=== PATIENT | female | born 1955 | race American Indian/Alaskan Native ===

== ENCOUNTER → 2016-08-12 | Day surgery (SDC) | payer OTHER ==
--- NOTE | 2016-08-13 09:51 | PATH ---
Surgical Pathology Report Patient Name: FLAKITO MELÉNDEZ [facility]. Rec. #: [id number] /Age/Gender: 1955 (Age: 60) / F Account: [id number] Location: [facility] Taken: 08/12/2016 Received: 08/12/2016 Reported: 08/13/2016 Physicians: Trenton Becerra M.D. Specimen(s) Received A: LEFT BREAST SPECIMEN WITH CALCIFICATIONS B: LEFT BREAST SPECIMEN WITHOUT CALCIFICATIONS Clinical History Nonpalpable lesion, microcalcification, suspicious Final Diagnosis A. LEFT BREAST, WITH CALCIFICATION, STEREOTACTIC NEEDLE CORE BIOPSY: SCLEROSED FIBROADENOMA WITH STROMAL CALCIFICATION. B. LEFT BREAST, WITHOUT CALCIFICATION, STEREOTACTIC NEEDLE CORE BIOPSY: SCLEROSED FIBROADENOMA AND BENIGN BREAST TISSUE. Electronically Signed Tod Grayosn M.D. Gross Description A. Received in formalin labeled "left breast with calcifications," are 2 pretty-yellow, cylindrical portions of fibroadipose tissue averaging 2.8 cm in length and 0.2 cm in diameter. The specimens are submitted in toto in one cassette. B. Received in formalin labeled "left breast without calcifications," are 4 pretty-yellow, cylindrical portions of fibroadipose tissue ranging from 2.0-2.8 cm in length and averaging 0.3 cm in diameter. The specimens are submitted in toto in one cassette. Time to formalin fixation: 5 minutes Total formalin fixation time: Approximately 8 hours. /08/12/201608/12/2016
== END | disposition home or self-care (01) ==
LOC: FMAMMOTONE 08:06
PROVIDERS: ATTEND Surgery Surgical Oncology
PROC: 0HBU3ZX Excision of Left Breast, Percutaneous Approach, Diagnostic (ICD-10-PCS; principal; 2016-08-12)
DX: D24.2 Benign neoplasm of left breast (principal); R92.1 Mammographic calcification found on diagnostic imaging of breast; N64.89 Other specified disorders of breast
CPT/HCPCS: 19081; 88305-TC

== ENCOUNTER 2017-04-22 05:14 | Day surgery (SDC) | payer OTHER ==
[2017-04-21 13:26] VITALS: BMI 37.4
--- NOTE | 2017-04-22 07:39 | HP ---
Satellite [facility] - Past Medical History Allergies/Adverse Reactions: Allergies Allergy/AdvReac Type Severity Reaction Status Date / Time oxycodone HCl [From Percocet] Allergy Intermediate Itching Verified 04/22/17 07: 14 Endocrine: Yes: Diabetes Mellitus Additional Medical History: Patient also has a history of breast cancer on the right side. Pt also has a history of hypertension.Also a total knee arthroplasty. - Current Medications Current Medications: Home Medications Medication Instructions Recorded Aspirin Coated [Ecotrin -] 81 mg PO DAILY 06/08/12 Telmisartan [Micardis] 80 mg PO HS 06/08/12 Ranitidine HCl [Zantac 75] 150 mg PO BID 01/17/13 Tamoxifen Citrate 20 mg PO HS 01/17/13 Metoprolol Succinate [Toprol Xl] 100 mg PO DAILY 12/05/14 Satellite Physical Exam - Physical Examination Vital Signs: Vital Signs Period Temp Pulse Resp BP Sys/Davis Pulse Ox Last 24 Hr 98.2 F 60 18 140/67 97
[2017-04-22] MEDS ORDERED: PROMETHAZINE HCL 25 MG/1 ML VIAL IVPUSH PRN (08:15)
[2017-04-22] MEDS ORDERED: ONDANSETRON 4 MG/2 ML VIAL IVPUSH PRN (08:15)
[2017-04-22] MEDS ORDERED: LACTATED RINGERS SOLUTION 1,000 ML IV SCH (08:15)
[2017-04-22] MEDS ORDERED: FERRIC SUBSULFATE 500 ML BOTTLE TP ONE (08:15)
[2017-04-22] MEDS ORDERED: ceFAZolin SODIUM 1 GM VIAL IVPB ONE (08:27)
--- NOTE | 2017-04-22 09:17 | OP ---
DATE OF OPERATION: 04/22/2017 PREOPERATIVE DIAGNOSIS: Postmenopausal bleeding and also abnormal Pap smear characterized by atypical glandular cells of undetermined significance of the cervix. OPERATIVE PROCEDURE: Hysterectomy, dilatation and curettage, colposcopy with endocervical curettage and cervical biopsies. SURGEON: Marcelino Merino MD ESTIMATED BLOOD LOSS: Approximately 10 mL. DESCRIPTION OF PROCEDURE: The patient was brought to the operating room, placed in the supine position, given anesthesia by the mine superintendent. The patient was then prepped and draped in the usual manner for hysteroscopy D and C in the lithotomy position. The cervix was treated with acetic acid. Colposcopy was performed. The patient was noted to have tissue protruding from the endocervical canal to the exocervix. The cervix appeared normal, and the tissue was removed. After the colposcopy was carried out and the tissue was removed from the endocervical canal, a hysteroscopy was then performed which showed polypoid tissue inside the uterus. The polypoid tissue was removed using a medium-sized curette. The patient was sounded to 8 cm prior to the removal of the tissue. The patient tolerated the procedure well. Hemostasis was achieved by using Monsels solution, and afterwards, cautery using a 5-mm ball electrode to achieve cervical hemostasis after taking the cervical biopsies from areas 3, 7, 6, and 12. The patient left the operating room in good condition and went to the recovery room for observation and recovery. The patient did well and was later discharged. MARCELINO MERINO M.D. [id number]
[2017-04-22 09:54] VITALS: PULSE 60
[2017-04-22 10:17] VITALS: TEMP 98.8
[2017-04-22 11:06] VITALS: BP 140/80
--- NOTE | 2017-04-25 15:10 | PATH ---
Surgical Pathology Report Patient Name: FLAKITO MELÉNDEZ [facility]. Rec. #: [id number] /Age/Gender: 1955 (Age: 61) / F Account: [id number] Location: [facility] SURGICAL Taken: 04/22/2017 Received: 04/22/2017 Reported: 04/25/2017 Physicians: Garth Merino M.D. Specimen(s) Received A: ENDOCERVICAL POLYP B: ENDOCERVICAL CURETTINGS C: CERVICAL BIOPSY AT 7 O'CLOCK D: CERVICAL BIOPSY AT 3 O'CLOCK E: CERVICAL BIOPSPY AT 6 O'CLOCK F: CERVICAL BIOPSY AT 12 'CLOCK G: ENDOMETRIAL CURETTINGS Clinical History Abnormal Pap smear Final Diagnosis A. UTERUS, ENDOCERVICAL POLYP, BIOPSY: ENDOMETRIAL POLYP(S), ATROPHIC. B. ENDOCERVICAL CURETTINGS, DILATATION AND CURETTAGE: FRAGMENTS OF ENDOMETRIAL POLYP(S), ATROPHIC. C. CERVIX, 7:00, BIOPSY: BENIGN CERVICAL TISSUE. NEGATIVE FOR INTRAEPITHELIAL LESIONORMALIGNANCY. D. CERVIX, 3:00, BIOPSY: BENIGN CERVICAL TISSUE. NEGATIVE FOR INTRAEPITHELIAL LESIONORMALIGNANCY. E. CERVIX, 6:00, BIOPSY: BENIGN CERVICAL TISSUE. NEGATIVE FOR INTRAEPITHELIAL LESIONORMALIGNANCY. F. CERVIX, 12:00, BIOPSY: BENIGN CERVICAL TISSUE. NEGATIVE FOR INTRAEPITHELIAL LESIONORMALIGNANCY. G. ENDOMETRIAL CURETTINGS, DILATATION AND CURETTAGE: FRAGMENTS OF ENDOMETRIAL POLYP(S), ATROPHIC. Electronically Signed Kelsey Pantoja M.D. Gross Description A. Received in formalin labeled "endocervical polyp," is a 0.9 x 0.9 x 0.3 cm pink-pretty, polypoid portion of soft tissue. The specimen is submitted in toto in one cassette. B. Received in formalin labeled "endocervical curettings," is a 1.3 x 1.0 x 0.3 cm aggregate of pink-pretty, irregular to polypoid soft tissue fragments. The specimen is entirely submitted in one cassette. C. Received in formalin labeled "cervical biopsy at 7:00," is a 0.5 x 0.3 x 0.1 cm pretty-pink soft tissue fragment. The specimen is submitted in toto in one cassette. D. Received in formalin labeled "cervical biopsy at 3:00," is a 0.4 x 0.3 x 0.2 cm pink-pretty soft tissue fragment. The specimen is submitted in toto in one cassette. E. Received in formalin labeled "cervical biopsy at 6:00," is a 0.5 x 0.3 x 0.2 cm pink-pretty soft tissue fragment. The specimen is submitted in toto in one cassette. F. Received in formalin labeled "cervical biopsy at 12:00," is a 0.5 x 0.3 x 0.1 cm pink-pretty soft tissue fragment. The specimen is submitted in toto in one cassette. G. Received in formalin labeled "endometrial curettings," is a 3.2 x 3.0 x 0.4 cm aggregate of pink-pretty irregular to polypoid soft tissue fragments. The specimen is entirely submitted in 2 cassettes. 04/22/201704/22/2017
== END 2017-04-22 11:06 | disposition home or self-care (01) ==
LOC: JASU-SURG 05:14
PROVIDERS: ATTEND Obstetrics & Gynecology
PROC: 0UB98ZX Excision of Uterus, Via Natural or Artificial Opening Endoscopic, Diagnostic (ICD-10-PCS; 2017-04-22)
PROC: 0UDB7ZX Extraction of Endometrium, Via Natural or Artificial Opening, Diagnostic (ICD-10-PCS; 2017-04-22)
PROC: 0UBC8ZX Excision of Cervix, Via Natural or Artificial Opening Endoscopic, Diagnostic (ICD-10-PCS; principal; 2017-04-22 07:30)
DX: N95.0 Postmenopausal bleeding (principal); N84.0 Polyp of corpus uteri; R87.619 Unspecified abnormal cytological findings in specimens from cervix uteri
CPT/HCPCS: 86850; 86900; 86901; 88305-TC; 94760

== ENCOUNTER 2017-09-15 06:09 | Day surgery (SDC) | payer OTHER ==
[2017-09-09 12:50] VITALS: BMI 36.2
[2017-09-15] MEDS ORDERED: CELECOXIB 200 MG CAPSULE PO ONE (06:48)
[2017-09-15] MEDS ORDERED: oxyCODONE HCL 10 MG SUSTAINED ACTING TABLET PO ONE (06:48)
[2017-09-15] MEDS ORDERED: GABAPENTIN 300 MG CAPSULE (FP) PO ONE (06:48)
[2017-09-15] MEDS ORDERED: TRANEXAMIC ACID 1000 MG/10 ML VIAL IVPUSH ONE (06:48)
[2017-09-15] MEDS ORDERED: CEFAZOLIN 2 GM in DEXTROSE 5%-WATER - 50 ML IVPB ONE (06:48)
[2017-09-15] MEDS ORDERED: ROPIVICAINE 0.2%/MORPH PF/KETOROLAC - 51ML DISP.SYRINGE IA ONE ×3 (06:48→11:15)
[2017-09-15] MEDS ORDERED: PANTOPRAZOLE 40 MG TABLET (FP) PO ONE (06:50)
--- NOTE | 2017-09-15 07:04 | HP ---
Admitting History and Physical - Admission Chief Complaint: left knee osteoarthritis x years History of Present Illness: 61-year-old female presenting regard to her left knee. Long-standing history of left knee osteoarthritis. Patient complains of pain, limited range of motion, difficulty ambulating, and difficulty completing activities of daily living. Patient has failed conservative treatment options including PO medications, activity modification, injections, and exercise program. At this point Patient would like to proceed with surgical intervention, Left total knee arthroplasty ( MAKOplasty). History Source: Patient - Past Medical History Cardiovascular: Yes: HTN Gastrointestinal: Yes: GERD Musculoskeletal: Yes: Osteoarthritis Endocrine: Yes: Diabetes Mellitus Additional Past Medical History: Breast CA - Past Surgical History Additional Past Surgical History: See written history & physical - Smoking History Smoking history: Never smoked Have you smoked in the past 12 months: No - Alcohol/Substance Use Hx Alcohol Use: No Home Medications - Allergies Allergies/Adverse Reactions: Allergies Allergy/AdvReac Type Severity Reaction Status Date / Time oxycodone HCl [From Percocet] AdvReac Intermediate Itching Verified 09/09/17 12: 39 - Home Medications Home Medications: Ambulatory Orders Aspirin Coated [Ecotrin -] 81 mg PO DAILY 06/08/12 Telmisartan [Micardis] 80 mg PO HS 06/08/12 Ranitidine HCl [Zantac 75] 150 mg PO BID 01/17/13 Tamoxifen Citrate 20 mg PO HS 01/17/13 Metoprolol Succinate [Toprol Xl] 100 mg PO DAILY 12/05/14 Cholecalciferol (Vitamin D3) [Vitamin D] 2,000 unit PO DAILY 09/09/17 Ibuprofen [Motrin -] 400 mg PO ASDIR PRN 09/15/17 Physical Examination Vital Signs: Vital Signs Temperature 98.2 F 09/15/17 06:28 Pulse Rate 62 09/15/17 06:28 Respiratory Rate 18 09/15/17 06:28 Blood Pressure 149/77 09/15/17 06:28 O2 Sat by Pulse Oximetry (%) 98 09/15/17 06:28 Constitutional: Yes: Well Nourished, No Distress Eyes: Yes: Conjunctiva Clear HENT: Yes: Atraumatic, Normocephalic Neck: Yes: Supple Cardiovascular: Yes: Regular Rate and Rhythm Respiratory: Yes: Regular Gastrointestinal: Yes: Soft ...Rectal Exam: Yes: Deferred Musculoskeletal: Yes: Joint Stiffness (left knee), Joint Swelling (left knee) Assessment/Plan 61-year-old female presenting regard to her left knee. Long-standing history of left knee osteoarthritis. Patient complains of pain, limited range of motion, difficulty ambulating, and difficulty completing activities of daily living. Patient has failed conservative treatment options including PO medications, activity modification, injections, and exercise program. At this point Patient would like to proceed with surgical intervention. Pros, cons, risks, benefits & alternatives of a Left total knee arthroplasty (MAKOplasty) were discussed at length. Patient confirms their understanding and consents to proceed wih a left total knew arthroplasty (MAKOplasty).
[2017-09-15] MEDS ORDERED: BUPIVACAINE HCL/PF (5 MG/ML) 30 ML VIAL IJ ONE (07:20)
[2017-09-15] MEDS ORDERED: DEXAMETHASONE SOD PHOSPHATE/PF 10 MG/ML SDV ONE (07:20)
[2017-09-15] MEDS ORDERED: MIDAZOLAM HCL 2 MG/2 ML SINGLE DOSE VIAL ONE ×2 (07:20→08:24)
[2017-09-15] MEDS ORDERED: ceFAZolin SODIUM 1 GM VIAL ONE ×2 (07:23→08:25)
[2017-09-15] MEDS ORDERED: VANCOMYCIN 1,000 MG VIAL (RESTRICTED TO ID ONLY) ONE (07:23)
[2017-09-15] MEDS ORDERED: SUCCINYLCHOLINE CHLORIDE 200 MG/10 ML VIAL ONE (08:24)
[2017-09-15] MEDS ORDERED: PROPOFOL 20 ML ONE ×5 (08:24→10:50)
[2017-09-15] MEDS ORDERED: LIDOCAINE HCL/PF 2% SDV 5ML VIAL ONE ×2 (08:25→08:39)
[2017-09-15] MEDS ORDERED: ONDANSETRON 4 MG/2 ML VIAL ONE (08:25)
[2017-09-15] MEDS ORDERED: DEXAMETHASONE SOD PHOSPHATE 4 MG/1 ML VIAL ONE (08:25)
[2017-09-15] MEDS ORDERED: TRANEXAMIC ACID 1000 MG/10 ML VIAL IVPB ONE ×2 (09:04→11:15)
[2017-09-15] MEDS ORDERED: VANCOMYCIN 1,000 MG VIAL (RESTRICTED TO ID ONLY) IVPB ONE ×2 (09:05→11:16)
[2017-09-15] MEDS ORDERED: oxyCODONE HCL 10 MG SUSTAINED ACTING TABLET PO SCH (10:00)
[2017-09-15] MEDS ORDERED: ONDANSETRON 4 MG/2 ML VIAL IVPUSH PRN ×2 (12:18→12:36)
[2017-09-15] MEDS ORDERED: PROMETHAZINE HCL 25 MG/1 ML VIAL IVPUSH PRN (12:18)
[2017-09-15] MEDS ORDERED: oxyCODONE HCL 5 MG TABLET PO PRN ×2 (12:18)
[2017-09-15] MEDS ORDERED: ACETAMINOPHEN 325 MG TABLET (FP) PO SCH (12:30)
[2017-09-15] MEDS ORDERED: MAG HYDROX/AL HYDROX/SIMETH 30 ML UNIT-DOSE CUP PO PRN (12:36)
[2017-09-15] MEDS ORDERED: traMADol HCL 50 MG TABLET PO SCH (12:45)
[2017-09-15] MEDS ORDERED: LACTATED RINGERS SOLUTION 1,000 ML IV SCH (12:45)
[2017-09-15] MEDS ORDERED: ELECTROLYTE-148 SOLN 1,000 ML IV SCH (12:46)
[2017-09-15] MEDS: KETOROLAC TROMETHAMINE 30 MG/1 ML VIAL IVPUSH SCH ×3 (12:46→18:47)
[2017-09-15] MEDS: ACETAMINOPHEN 1000 MG/100 ML VIAL (NON FORMULARY) IVPB ONE ×2 (12:47→13:25)
--- NOTE | 2017-09-15 12:50 | OP ---
Operative Note - Note: Operative Date: 09/15/17 Pre-Operative Diagnosis: Left knee OA Operation: Left medial KEENA UKA Post-Operative Diagnosis: Same as Pre-op Surgeon: Daryl Ramos Core Driller Helper: Brayan Meneses Anesthesia: Spinal Estimated Blood Loss (mls): 100 Operative Report Dictated: Yes
--- NOTE | 2017-09-15 13:18 | SURG ---
Surgery Access Rep Note Access Rep: Brayan Meneses PA-C Date of Service: 09/15/17 Diagnosis: Left knee osteoarthritis Procedure: Left knee partial knee replacement I was present for the entirety of the operative procedure. For further detail, please refer to operative report.
--- NOTE | 2017-09-15 14:42 | SPEC ---
DATE OF OPERATION: DATE OF DICTATION: 09/15/2017 PREOPERATIVE DIAGNOSIS: Left knee osteoarthritis. POSTOPERATIVE DIAGNOSIS: Left knee osteoarthritis. PROCEDURE: Left knee medial unicompartmental knee replacement with MAKOplasty robotic navigation. ATTENDING: Damaris Elias MD PIPING SUPERVISOR: EPTRONA ANESTHESIA: Spinal plus sedation. ESTIMATED BLOOD LOSS: 100 mL. COMPLICATIONS: None. SPECIMENS: None. DISPOSITION: The patient was transferred to the PACU in stable condition. IMPLANTS USED: KEENA size 4 femoral component, KEENA size 4 tibial component, 8-mm polyethylene component. INDICATIONS: This is a 61-year-old female who came to the office complaining of bilateral knee pain. She was seen and examined by Dr. Elias and diagnosed with severe osteoarthritis. The left knee pain was more painful than the right. The patient was initially treated nonoperatively with conservative measures, but continued to have severe pain and ambulatory dysfunction. She was therefore indicated for surgery. Her pain was exclusively in the medial compartment. She denied having pain in the lateral and patellofemoral compartments and this correlated with her radiograph appearance /unicompartmental medial knee replacement. The risks, benefits and alternatives of the procedure were explained to the patient in great detail and she elected to proceed with the surgery. These risks included, but are not limited to, anesthesia risks, scarring, instability, stiffness, infection, pulmonary embolus, deep vein thrombosis, intraoperative fracture, intraoperative neurovascular injury, problems with wound healing, failed procedure, persistent pain, nerve injury, possibility of lower limb numbness and weakness, the need for possible subsequent salvage surgeries, persistent limp, disability and . On the day of surgery, the patient was taken to the operating room and placed on the OR table. Spinal anesthesia was administered by the anesthesiologist. The patient was then positioned supine on the table and all bony prominences were padded. A nonsterile tourniquet was placed on the proximal thigh of the operative leg. The knee was then prepped and draped in the usual sterile fashion and intravenous antibiotics were given for infection prophylaxis. A surgical time out was then performed with the team and the patient's identify, procedure, side, availability of implants and the administration of antibiotics was confirmed. With the knee flexed, an 8-cm incision was made just slightly medial to the midline and carried down through the subcutaneous fat to the underlying retinaculum. Electrocautery was used to achieve hemostasis. A limited medial parapatellar arthrotomy was performed. This was followed by a subperiosteal dissection of the tissue off the proximal medial tibia. A portion of fat pad was removed from under the patellar tendon to improve visualization and a small portion of fat was excised off the distal supracondylar femur. The knee was then flexed further and the anterior horn of the medial meniscus was released. Grade 4 changes were noted diffusely throughout the medial compartment. The lateral compartment appeared to be in good condition. Femoral and tibial checkpoints were then placed in the appropriate location using a mallet. Two parallel, bicortical self-drilling pins were placed in the proximal tibia after making stab incisions and bluntly dissecting down to bone. These were positioned approximately 10 cm distal to the tibial tubercle. Two pins were then placed in the proximal femur using the same technique. These were located approximately 10 cm proximal to the superior pole of the patella. The [employer] navigation arrays were then attached to both the femoral and tibial pins and the lower extremity was then registered to the robotic navigation device using various joint movements, as well as inputting approximately 50 checkpoints. The knee was then taken through a full range of motion with a corrective valgus force applied. Alignment in varus/valgus was measured at 0, 30, 60, 90 and 120 degrees of flexion to determine soft tissue balance in all of these positions. The navigation device showed appropriate tracking of the virtual components on the screen, as well as a graphic representation of the soft tissue balance. The components were repositioned virtually using the software until optimal soft tissue balance was achieved. Once this was accomplished, the final plan was saved and sent to the robot. Retractors were then placed around the distal femur. The robot was brought into the sterile field and registered with the navigation device. The robotic arm with a pradeep was then used to remove the appropriate amount of bone from the femur and tibia as per the saved software plan. The knee was then irrigated. Trial components were placed and the knee was taken through a full range of motion to assess soft tissue balance and alignment. The tracking and range of motion were found to be excellent and the soft tissue balance was optimal and according to plan. All trial components were then removed and an Esmarch bandage was used to exsanguinate the leg. The tourniquet was inflated in preparation for cementing. All bony surfaces were cleaned with pulsatile lavage and dried. Bone cement was then prepared on the back table and final components were cemented in place in the usual fashion. Extruded cement was removed. Once the cement had hardened, the knee was taken through a full range of motion to assess stability, balance and patellar tracking. These were found to be optimal. The trial polyethylene was exchanged for a final implant. Medial and inferior osteophytes were debrided off the patella (patelloplasty). The navigation arrays and Melva pins were removed from the femur and tibia. All wounds were then thoroughly irrigated with normal saline. A periarticular injection was used to locally infiltrate the capsular tissues surrounding the implant and prosthesis. A 1 Vicryl and 0 V-Loc 180 barbed sutures were used to close the arthrotomy, 2-0 Vicryl sutures were used in the subcutaneous tissues. The skin was closed using both 3-0 V-Loc 90 suture in a running subcuticular fashion and Dermabond skin adhesive. Vicryl 4-0 undyed and Dermabond skin adhesive were used to close the stab incisions made for the navigation pins. Once this was completed, sterile Aquacel dressings were applied to each incision site. A compressive dressing was applied. The tourniquet was then deflated and the patient was awakened and went to the PACU in stable condition. ADDENDUM: After final implants were placed, a 3-minute dilute-Betadine lavage was performed. Following this, the wound was thoroughly irrigated with normal saline via pulsatile lavage and wound closure was begun. DAMARIS ELIAS M.D. [id number]
[2017-09-15] MEDS: CEFAZOLIN 2 GM/D5W 2 GM/50 ML ML IVPB SCH (17:21)
[2017-09-15] MEDS: traMADol HCL 50 MG TABLET PO SCH (17:21)
[2017-09-15] MEDS: ACETAMINOPHEN 325 MG TABLET (FP) PO SCH (18:47)
[2017-09-15] MEDS ORDERED: DEXAMETHASONE SOD PHOSPHATE 10 MG/1 ML VIAL IVPB ONE (20:00)
[2017-09-15] MEDS: diphenhydrAMINE HCL 25 MG CAPSULE (FP) PO PRN (21:40)
[2017-09-15] MEDS: SENNOSIDES/DOCUSATE COMBO (SENNA PLUS) TABLET (UD) PO SCH (21:41)
[2017-09-15] MEDS: RANITIDINE HCL 150 MG TABLET (FP) PO SCH (21:41)
[2017-09-15] MEDS: GABAPENTIN 300 MG CAPSULE (FP) PO SCH (21:41)
[2017-09-15] MEDS: CELECOXIB 200 MG CAPSULE PO SCH (21:41)
[2017-09-15] MEDS: oxyCODONE HCL 10 MG SUSTAINED ACTING TABLET PO SCH (21:41)
[2017-09-15] MEDS: ASCORBIC ACID 500 MG TABLET (FP) PO SCH (21:41)
[2017-09-15] MEDS ORDERED: VALSARTAN 160 MG TABLET (UD) PO SCH (22:00)
[2017-09-15] MEDS ORDERED: TAMOXIFEN CITRATE 10 MG TABLET PO SCH (22:00)
[2017-09-16] MEDS: traMADol HCL 50 MG TABLET PO SCH ×2 (01:00→05:52)
[2017-09-16] MEDS: ACETAMINOPHEN 325 MG TABLET (FP) PO SCH ×2 (01:00→06:26)
[2017-09-16] MEDS: KETOROLAC TROMETHAMINE 30 MG/1 ML VIAL IVPUSH SCH ×2 (01:00→05:53)
[2017-09-16] MEDS: CEFAZOLIN 2 GM/D5W 2 GM/50 ML ML IVPB SCH (02:00)
[2017-09-16 06:28] VITALS: TEMP 98.1
[2017-09-16] MEDS ORDERED: ASPIRIN 325 MG TABLET PO SCH (08:00)
[2017-09-16 08:46] VITALS: BP 124/51; PULSE 62
[2017-09-16] MEDS: ASCORBIC ACID 500 MG TABLET (FP) PO SCH (09:27)
[2017-09-16] MEDS: RANITIDINE HCL 150 MG TABLET (FP) PO SCH (09:27)
[2017-09-16 09:32] LABS: ANION GAP 4 (8-16); BLOOD UREA NITROGEN 16 mg/dl (7-18); CALCIUM 8.7 mg/dl (8.4-10.2); CHLORIDE 104 mmol/L (98-107); CO2 28 mmol/L (22-28); GLUCOSE,RANDOM 193 mg/dl (74-106); POTASSIUM 4.4 mmol/L (3.5-5.1); SODIUM 136 mmol/L (136-145)
[2017-09-16] MEDS: CELECOXIB 200 MG CAPSULE PO SCH (09:33)
[2017-09-16] MEDS: SENNOSIDES/DOCUSATE COMBO (SENNA PLUS) TABLET (UD) PO SCH (09:33)
[2017-09-16] MEDS: GABAPENTIN 300 MG CAPSULE (FP) PO SCH (09:33)
--- NOTE | 2017-09-16 09:35 | PN ---
Progress Note (short form) - Note Progress Note: Anesthesia POSTop 61 yo female POD#1 s/p TKA S/O: Patient sitting comfortably, dressed in street clothes, pain well controlled. Tolerated PO pain meds with little side effects. Tolerating PO. Ambulating with assistance A: VSS P: Continue current care, encouraged PT and IS.
[2017-09-16 09:43] LABS: CREATININE < 0.8 mg/dl (0.6-1.3)
[2017-09-16] MEDS ORDERED: MULTIVITAMINS (DAILY MVI) TABLET (FP) PO SCH (10:00)
[2017-09-16] MEDS ORDERED: PANTOPRAZOLE 40 MG TABLET (FP) PO SCH (10:00)
--- NOTE | 2017-09-16 10:03 | PN ---
Progress Note (short form) - Note Progress Note: Pt seen and examined. Doing well. AVSS Selected Entries 09/16/17 08:45 Pulse Rate 62 Respiratory 18 Rate Blood Pressure 124/51 O2 Sat by Pulse 99 Oximetry (%) Laboratory Tests 09/16/17 09/16/17 08:35 08:35 WBC Pending Sodium 136 Potassium 4.4 Chloride 104 Carbon Dioxide 28 Anion Gap 4 L BUN 16 Creatinine < 0.8 D Random Glucose 193 H Calcium 8.7 Gen:NAD LLE: c/d/i, NVID A/P s/p L knee medial MAKOplasty POD#1 PT/OOB D/C home after PT
--- NOTE | 2017-09-16 10:03 | DS ---
Physical Examination Vital Signs: Vital Signs Temperature 98.1 F 09/16/17 06:20 Pulse Rate 62 09/16/17 08:45 Respiratory Rate 18 09/16/17 08:45 Blood Pressure 124/51 09/16/17 08:45 O2 Sat by Pulse Oximetry (%) 99 09/16/17 08:45 Labs: CBC, BMP 09/16/17 08:35 Discharge Summary Reason For Visit: LEFT KNEE OSTEOARTHRITIS Current Active Problems Unilateral primary osteoarthritis, left knee (Acute) Procedures: Principal: Left knee medial MAKOplasty Hospital Course: Admitted for elective surgery. Procedure performed without complications. Pt received postoperative antibiotic prophylaxis and DVT ppx. Ambulated with physical therapy. Stable for discharge home with outpatient followup. Condition: Stable - Instructions Diet, Activity, Other Instructions: Dr. Ramos - Knee Replacement Instructions Keep the Aquacel dressing on until removed by Dr. Ramos in 10-14 days - it is antibacterial and waterproof and you can shower with it on. Call the office for a follow-up appointment with Dr. Ramos in 10-14 days. Take one Aspirin 325mg daily for 6 weeks to prevent blood clots in your legs. After 6 weeks go back to taking 81mg daily. Resume taking Zantac daily to protect against heartburn and ulcers. Take Cephalexin (antibiotic) 3x/day for 10 days to help prevent skin infection. Take Celebrex 200mg twice daily for 30 days to reduce swelling and inflammation. Take a multivitamin, stool softener, and extra vitamin C supplement daily. For pain: *Mild pain (1-3/10): Take 1 Tramadol tablet every 4 hours as needed. Moderate pain (4-6/10): Take 1 Tramadol tablet and 1 Percocet tablet every 4 hours as needed. Severe pain (7-10/10): Take 1 Tramadol tablet and 2 Percocet tablets every 4 hours as needed. Activity: You can put as much weight on the operative leg as you want. Right after you get home, there will be a physical therapist coming to your house to help you walk around and bend/straighten your knee. After your follow-up appointment, you will be sent for more intensive outpatient physical therapy which will include machines and equipment that the home therapist cannot bring to your house. Always use a walker or cane for balance and to prevent falls. Expect to see swelling/bruising from the operative site all the way down to your toes. Wear the compression stocking on the operative side during the day to minimize how much swelling there is in your foot/ankle. Don't wear the stocking at night. You don't have to wear a stocking on the other side. Disposition: VNS/HOME HEALTH CARE - Home Medications Comprehensive Discharge Medication List: Ambulatory Orders Telmisartan [Micardis] 80 mg PO HS 06/08/12 Ranitidine HCl [Zantac 75] 150 mg PO BID 01/17/13 Tamoxifen Citrate 20 mg PO HS 01/17/13 Metoprolol Succinate [Toprol Xl] 100 mg PO DAILY 12/05/14 Cholecalciferol (Vitamin D3) [Vitamin D3] 2,000 unit PO DAILY 09/09/17 Ascorbic Acid [Vitamin C -] 500 mg PO BID tablet 09/16/17 Aspirin [ASA -] 325 mg PO DAILY@0800 tablet 09/16/17 Celecoxib [CeleBREX -] 200 mg PO BID #60 capsule 09/16/17 Cephalexin Monohydrate [Keflex -] 500 mg PO TID #30 capsule 09/16/17 Multivitamins [Multivit ([facility] Formulary)] 1 tab PO DAILY tab 09/16/17 Oxycodone HCl/Acetaminophen [Percocet 5-325 mg Tablet] 1 - 2 tab PO Q4H PRN #60 tablet MDD 8 09/16/17 Sennosides/Docusate Sodium [Pericolace -] 2 tablet PO BID tablet 09/16/17 traMADol HCL [Ultram -] 50 mg PO Q4H PRN #90 tablet MDD 6 09/16/17
[2017-09-16] MEDS ORDERED: KETOROLAC TROMETHAMINE 30 MG/1 ML VIAL IVPUSH SCH (10:30)
[2017-09-16 10:31] LABS: HEMATOCRIT 35.3 % (32.4-45.2); HEMOGLOBIN 11.9 GM/dl (10.7-15.3); MCH 31.1 pg (25.7-33.7); MCHC 33.7 g/dl (32.0-36.0); MEAN CELL VOLUME 92.4 fl (80-96); MEAN PLT VOLUME 8.6 fl (7.5-11.1); PLATELET COUNT 271 K/MM3 (134-434); RBC 3.82 M/mm3 (3.60-5.2); WHITE BLOOD COUNT 17.2 K/mm3 (4.0-10.8)
[2017-09-16] MEDS: diphenhydrAMINE HCL 25 MG CAPSULE (FP) PO PRN (11:37)
[2017-09-16] MEDS: oxyCODONE HCL 10 MG SUSTAINED ACTING TABLET PO SCH (11:38)
== END 2017-09-16 13:30 | disposition home health service (06) ==
LOC: FASU 06:09 → FM/S 13:20 → FASU 09-16 13:30
PROVIDERS: ATTEND Student in an Organized Health Care Education/Training Program
PROC: 8E0YXBZ Computer Assisted Procedure of Lower Extremity (ICD-10-PCS; 2017-09-15)
PROC: 8E0Y0CZ Robotic Assisted Procedure of Lower Extremity, Open Approach (ICD-10-PCS; 2017-09-15)
PROC: 0SRD0L9 Replacement of Left Knee Joint with Medial Unicondylar Synthetic Substitute, Cemented, Open Approach (ICD-10-PCS; principal; 2017-09-15 08:56)
DX: M17.12 Unilateral primary osteoarthritis, left knee (principal); I10 Essential (primary) hypertension; E11.9 Type 2 diabetes mellitus without complications; K21.9 Gastro-esophageal reflux disease without esophagitis; Z85.3 Personal history of malignant neoplasm of breast
CPT/HCPCS: 20985; 27446; C1776; S2900; 36415; 73560-TC-LT-FY; 80048; 85027; 94760; 97116-GP; 97162-GP; J0131; J1100

== ENCOUNTER 2019-03-01 07:21 | Day surgery (SDC) | payer OTHER ==
[2019-03-01 07:53] VITALS: TEMP 98.4; BMI 39.6
[2019-03-01 10:35] VITALS: PULSE 60
[2019-03-01 15:27] VITALS: BP 123/51
--- NOTE | 2019-03-02 14:41 | PATH ---
Surgical Pathology Report Patient Name: FLAKITO MELÉNDEZ [facility]. Rec. #: [id number] /Age/Gender: 1955 (Age: 63) / F Account: [id number] Location: [facility] Taken: 03/01/2019 Received: 03/01/2019 Reported: 03/02/2019 Physicians: Ezekiel Ospina D.O. Specimen(s) Received DESCENDING COLON POLYP Clinical History Adenoma surveillance Postoperative diagnosis: Colon polyp, hemorrhoids Final Diagnosis DESCENDING COLON, POLYP, BIOPSY: HYPERPLASTIC POLYP. Electronically Signed Latrice Kaye M.D. Gross Description Received in formalin, labeled "polyp descending colon" is a pretty, irregular portion of soft tissue measuring 0.1 cm. in greatest dimension. The specimen is submitted in toto in one cassette. 03/01/201903/01/2019
== END 2019-03-01 11:20 | disposition home or self-care (01) ==
LOC: JASU-ENDO 07:21
PROVIDERS: ATTEND Internal Medicine Gastroenterology
PROC: 0DBM8ZX Excision of Descending Colon, Via Natural or Artificial Opening Endoscopic, Diagnostic (ICD-10-PCS; principal; 2019-03-01 08:45)
DX: Z12.11 Encounter for screening for malignant neoplasm of colon (principal); Z86.010 Personal history of colon polyps; K64.8 Other hemorrhoids; D12.4 Benign neoplasm of descending colon
CPT/HCPCS: 88305-TC

== ENCOUNTER 2021-01-04 12:19 | Emergency (ER) | payer OTHER ==
[2021-01-04 12:34] VITALS: BMI 37.4
[2021-01-04] MEDS ORDERED: CASIRIVIMAB/IMDEVIMAB 10 ML in SODIUM CHLORIDE 100 ML IVPB ONE (13:03)
[2021-01-04 14:03] LABS: HEMATOCRIT 31.2 % (32.4-45.2); HEMOGLOBIN 10.6 GM/dL (10.7-15.3); MCH 31.4 pg (25.7-33.7); MCHC 34.1 g/dl (32.0-36.0); MEAN CELL VOLUME 92.2 fl (80-96); MEAN PLT VOLUME 7.3 fl (7.5-11.1); PLATELET COUNT 327 10^3/uL (134-434); RBC 3.38 M/mm3 (3.60-5.2); WHITE BLOOD COUNT 5.9 K/mm3 (4.0-10.0)
[2021-01-04 14:24] LABS: CALCIUM 9.3 mg/dL (8.5-10.1)
[2021-01-04 14:25] LABS: ALBUMIN 3.5 g/dl (3.4-5.0); BLOOD UREA NITROGEN 45.9 mg/dL (7-18)
[2021-01-04 14:28] LABS: CREATININE 1.5 mg/dL (0.55-1.3)
[2021-01-04 14:30] LABS: BILIRUBIN,TOTAL 0.5 mg/dL (0.2-1); TOT PROT 8.2 g/dl (6.4-8.2)
[2021-01-04 16:19] VITALS: BP 113/68; PULSE 62; TEMP 99.7
== END 2021-01-04 16:24 | disposition home or self-care (01) ==
LOC: JER 12:19
DX: U07.1 COVID-19 (principal)
CPT/HCPCS: 36415; 80053; 85027; 99284-25; Q0240

== ENCOUNTER 2022-08-16 06:10 | Day surgery (SDC) | payer OTHER ==
[2022-08-10 13:14] VITALS: BMI 36.8
[2022-08-16] MEDS ORDERED: MIDAZOLAM HCL 2 MG/2 ML SINGLE DOSE VIAL ONE ×5 (07:21→10:50)
[2022-08-16] MEDS ORDERED: PROPOFOL 40 ML ONE (07:21)
[2022-08-16] MEDS ORDERED: BUPIVACAINE HCL/PF 0.5% (5MG/ML) 10 ML VIAL ONE (07:24)
[2022-08-16] MEDS ORDERED: BUPIVACAINE LIPOSOME/PF (EXPAREL) 266 MG/20 ML VIAL ONE (07:25)
[2022-08-16] MEDS ORDERED: BUPIVACAINE HCL/PF 0.5% (5 MG/ML) 30 ML VIAL IJ ONE (07:25)
[2022-08-16] MEDS ORDERED: VANCOMYCIN 1,000 MG VIAL (RESTRICTED TO ID ONLY) ONE ×2 (07:42→10:18)
[2022-08-16] MEDS ORDERED: CEFAZOLIN 2 GM in DEXTROSE 5%-WATER - 50 ML IVPB ONE (08:00)
[2022-08-16] MEDS ORDERED: ePHEDrine SULFATE 50 MG/1 ML AMPULE ONE (08:43)
[2022-08-16] MEDS ORDERED: TRANEXAMIC ACID 1000 MG/10 ML VIAL IVPUSH ONE (10:00)
[2022-08-16] MEDS ORDERED: ceFAZolin SODIUM 1 GM VIAL ONE (10:18)
[2022-08-16] MEDS ORDERED: KETOROLAC TROMETHAMINE 30 MG/1 ML VIAL ONE (10:18)
[2022-08-16] MEDS ORDERED: TRANEXAMIC ACID 1000 MG/10 ML VIAL ONE (10:18)
[2022-08-16] MEDS ORDERED: PHENYLEPHRINE HCL 10 MG/1 ML SINGLE DOSE VIAL ONE (10:18)
[2022-08-16] MEDS ORDERED: ONDANSETRON 4 MG/2 ML VIAL ONE (10:18)
[2022-08-16] MEDS ORDERED: DEXAMETHASONE SOD PHOSPHATE 4 MG/1 ML VIAL ONE (10:18)
[2022-08-16] MEDS ORDERED: BUPIVICAINE 0.25%/MORPH PF/KETOROLAC - 51ML DISP.SYRINGE IA ONE ×2 (10:43→11:45)
[2022-08-16] MEDS ORDERED: VANCOMYCIN 1,000 MG VIAL (RESTRICTED TO ID ONLY) IVPB ONE (11:25)
[2022-08-16] MEDS ORDERED: LACTATED RINGERS SOLUTION 1,000 ML IV SCH ×2 (12:15→12:45)
[2022-08-16] MEDS ORDERED: MAG HYDROX/AL HYDROX/SIMETH 30 ML UNIT-DOSE CUP PO PRN (12:15)
[2022-08-16] MEDS ORDERED: MAGNESIUM HYDROX 2400MG/30ML ORAL SUSPENSION 30 ML CUP PO PRN (12:15)
[2022-08-16] MEDS ORDERED: ONDANSETRON 4 MG/2 ML VIAL IVPUSH PRN ×2 (12:15→12:38)
[2022-08-16] MEDS ORDERED: morphine SULFATE 4 MG/ML VIAL IVPUSH PRN (12:26)
[2022-08-16] MEDS ORDERED: ACETAMINOPHEN 1000 MG/100 ML BAG IVPB ONE (12:39)
[2022-08-16] MEDS: CEFAZOLIN SODIUM 2 GM in DEXTROSE 5%-WATER 100 ML IVPB SCH (16:16)
[2022-08-16] MEDS: INSULIN SLIDING SCALE (NOVOLOG) 1 VIAL SQ SCH ×2 (16:40→21:17)
[2022-08-16] MEDS ORDERED: ACETAMINOPHEN 500 MG TABLET (FP) PO SCH (19:00)
[2022-08-16] MEDS: ACETAMINOPHEN 1000 MG/100 ML BAG IVPB SCH (19:01)
[2022-08-16 20:07] VITALS: RESP 18
[2022-08-16] MEDS ORDERED: VANCOMYCIN/WATER FOR INJ (PEG) 1 GM/200 ML BAG IVPB ONE (21:00)
[2022-08-16] MEDS: ASPIRIN 81 MG CHEWABLE TABLETS PO SCH (21:05)
[2022-08-16] MEDS: SENNOSIDES/DOCUSATE COMBO (SENNA PLUS) TABLET (UD) PO SCH (21:05)
[2022-08-16] MEDS ORDERED: LOSARTAN POTASSIUM 50 MG TABLET PO SCH (22:00)
[2022-08-16] MEDS ORDERED: ROSUVASTATIN CA 5 MG TABLET PO SCH (22:00)
[2022-08-16] MEDS ORDERED: PATIENT'S OWN MEDICATION (NON-FORMULARY) (Telmisartan [Micardis] 80 MG Tablet) PO SCH (22:00)
[2022-08-17] MEDS: ACETAMINOPHEN 1000 MG/100 ML BAG IVPB SCH ×3 (00:02→13:06)
[2022-08-17] MEDS: CEFAZOLIN SODIUM 2 GM in DEXTROSE 5%-WATER 100 ML IVPB SCH (01:00)
[2022-08-17] MEDS: INSULIN SLIDING SCALE (NOVOLOG) 1 VIAL SQ SCH ×2 (06:42→11:30)
[2022-08-17 08:28] LABS: HEMATOCRIT 30.5 % (32.4-45.2); HEMOGLOBIN 9.8 G/dL (10.7-15.3); MCH 31.7 pg (25.7-33.7); MCHC 32.2 g/dl (32.0-36.0); MEAN CELL VOLUME 98.6 fl (80-96); MEAN PLT VOLUME 8.1 fl (7.5-11.1); PLATELET COUNT 280.1 10^3/uL (134-434); RBC 3.09 10^6/uL (3.60-5.2); RDW 13.3 % (11.6-15.6); WHITE BLOOD COUNT 11.9 10^3/uL (4.0-10.8)
[2022-08-17 08:31] LABS: CALCIUM 8.7 mg/dl (8.5-10); CREATININE 1.2 mg/dl (0.55-1.3); POTASSIUM 4.3 mmol/L (3.5-5.1)
[2022-08-17] MEDS: SENNOSIDES/DOCUSATE COMBO (SENNA PLUS) TABLET (UD) PO SCH (09:14)
[2022-08-17] MEDS: traMADol HCL 50 MG TABLET PO PRN ×2 (09:16→16:21)
[2022-08-17] MEDS: ASPIRIN 81 MG CHEWABLE TABLETS PO SCH (09:17)
[2022-08-17] MEDS ORDERED: HYDROCHLOROTHIAZIDE 25 MG TABLET (FP) PO SCH (10:00)
[2022-08-17] MEDS ORDERED: MULTIVITAMINS (DAILY MVI) TABLET (FP) PO SCH (10:00)
[2022-08-17] MEDS ORDERED: CALCIUM 500MG/VIT-D 200 UNITS COMBO TABLET (FP) PO SCH (10:00)
[2022-08-17] MEDS ORDERED: FAMOTIDINE 20 MG TABLET PO SCH (10:00)
[2022-08-17] MEDS ORDERED: CHOLECALCIFEROL (VIT D3) 1,000 UNIT (25 MCG) TABLET PO SCH (10:00)
[2022-08-17 14:17] VITALS: BP 149/69; PULSE 57; TEMP 98.4
[2022-08-17] MEDS ORDERED: LOSARTAN POTASSIUM 50 MG TABLET PO SCH (22:00)
== END 2022-08-17 16:48 | disposition home or self-care (01) ==
LOC: FASUSAT 06:10 → FASU 06:10 → FM/S 13:27 → FASUSAT 08-17 16:48
PROVIDERS: ATTEND Orthopaedic Surgery Sports Medicine
PROC: 0SRD0L9 Replacement of Left Knee Joint with Medial Unicondylar Synthetic Substitute, Cemented, Open Approach (ICD-10-PCS; 2022-08-16)
PROC: 8E0Y0CZ Robotic Assisted Procedure of Lower Extremity, Open Approach (ICD-10-PCS; 2022-08-16)
PROC: 0SPD0LZ Removal of Medial Unicondylar Synthetic Substitute from Left Knee Joint, Open Approach (ICD-10-PCS; principal; 2022-08-16 09:02)
DX: M17.12 Unilateral primary osteoarthritis, left knee (principal); T84.84XA Pain due to internal orthopedic prosthetic devices, implants and grafts, initial encounter; Y79.1 Therapeutic (nonsurgical) and rehabilitative orthopedic devices associated with adverse incidents; Y92.9 Unspecified place or not applicable
CPT/HCPCS: 20985; 27446; C1776; S2900; 36415; 73560-TC-LT-FY; 80048; 82962; 85027; 88300-TC; 88307-TC; 88311-TC; 94760; 97010-GP; 97116-GP; 97162-GP; C1713; C1889

== ENCOUNTER 2023-09-22 04:12 | Day surgery (SDC) | payer OTHER ==
[2023-08-18 13:38] VITALS: BMI 36.8
[~2023-09-22 04:12] MED LIST: ACETAMINOPHEN 500 MG TABLET (FP) PO PRN
[2023-09-22 10:20] VITALS: RESP 18
[2023-09-22 12:27] VITALS: BP 145/60; PULSE 60; TEMP 98.7
[2023-09-22] MEDS ORDERED: ACETAMINOPHEN 500 MG TABLET (FP) PO PRN (13:15)
== END 2023-09-22 13:08 | disposition home or self-care (01) ==
LOC: JASU-SURG 04:12
PROVIDERS: ATTEND Pain Medicine Pain Medicine
PROC: 01HY3MZ Insertion of Neurostimulator Lead into Peripheral Nerve, Percutaneous Approach (ICD-10-PCS; principal; 2023-09-22 11:45)
DX: G89.4 Chronic pain syndrome (principal)
CPT/HCPCS: 64555; C1778